=== PATIENT | male | born 1980 | race Caucasian/White ===

== ENCOUNTER 2021-04-15 21:39 | Emergency (ER) | payer OTHER ==
[~2021-04-15 21:39] MED LIST: FLEXERIL 10 MG10 MG PO; NORCO 5-325 TA1 EACH PO
[2021-04-15] MEDS ORDERED: LODINE CAP 300300 MG PO (23:36)
[2021-04-15] MEDS ORDERED: NORFLEX 100 MG100 MG PO (23:36)
== END 2021-04-15 23:48 | disposition home or self-care (01) ==
LOC: ER1 21:39
DX: S16.1XXA Strain of muscle, fascia and tendon at neck level, initial encounter (principal); S39.012A Strain of muscle, fascia and tendon of lower back, initial encounter; S29.012A Strain of muscle and tendon of back wall of thorax, initial encounter; S80.11XA Contusion of right lower leg, initial encounter; R51.9 Headache, unspecified; F17.210 Nicotine dependence, cigarettes, uncomplicated; V49.50XA Passenger injured in collision with unspecified motor vehicles in traffic accident, initial encounter; Y92.410 Unspecified street and highway as the place of occurrence of the external cause
CPT/HCPCS: 70450; 71045; 72125; 72128; 72131; 73590; 99284

== ENCOUNTER 2021-09-21 17:32 | Emergency (ER) | payer OTHER ==
[~2021-09-21 17:32] MED LIST changes: +LODINE CAP 300300 MG PO; +NORFLEX 100 MG100 MG PO
[2021-09-21 20:08] LABS: HEMOGLOBIN 14.7 gm/dl (14.0-17.5); RED BLOOD COUNT 4.71 M/UL (4.20-5.50); WHITE BLOOD COUNT 8.7 K/UL (4.5-11.0)
[2021-09-21 20:22] LABS: BUN/CREATININE RATIO 20 (0-10)
[2021-09-21] MEDS ORDERED: DOXYCYCLINE HY100 MG PO (22:46)
[2021-09-25 04:12] LABS: CHLAMYDIA TRACHOMATIS, NAA Negative (Negative); NEISSERIA GONORRHOEAE, NAA Negative (Negative)
== END 2021-09-21 23:30 | disposition home or self-care (01) ==
LOC: ER1 17:32
PROVIDERS: Physician Assistant Medical
DX: N48.89 Other specified disorders of penis (principal); F17.210 Nicotine dependence, cigarettes, uncomplicated
CPT/HCPCS: 71045; 80053; 81001; 85025; 96372; 99283; J0696